=== PATIENT | female | born 1960 | race Caucasian/White ===

== ENCOUNTER 2021-06-26 08:51 | Emergency (ER) | payer OTHER ==
[~2021-06-26 08:51] MED LIST: CIPRO500 MG PO; FLOMAX0.4 MG PO; PERCOCET 5-3251 EACH PO
[2021-06-26] MEDS ORDERED: KEFLEX250 MG PO (13:31)
== END 2021-06-26 14:14 | disposition home or self-care (01) ==
LOC: FER 08:51
DX: S61.412A Laceration without foreign body of left hand, initial encounter (principal); S00.03XA Contusion of scalp, initial encounter; Z23 Encounter for immunization; W01.190A Fall on same level from slipping, tripping and stumbling with subsequent striking against furniture, initial encounter; Y92.009 Unspecified place in unspecified non-institutional (private) residence as the place of occurrence of the external cause
CPT/HCPCS: 70450; 72125; 73130; 90471; 90715